=== PATIENT | male | born 1975 | race Two or more races ===

== ENCOUNTER 2024-05-12 05:31 | Inpatient (IN) | payer MEDICAID ==
[~2024-05-12] VITALS: Ht 180.3 cm; Wt 120.4 kg
--- NOTE | 2024-05-12 06:00 | ECG ---
[facility] Test Date: 2024-05-12 Test Time: 05:41:34 Pat Name: MICHAEL FRAGOSO Department: ED Room: 0286 Gender: M Dispatcher [place]: KINDRA : 1975 Requested By: EMERGENCY EMERGENCY Order Number: [id number] Reading MD: David Potter Measurements Intervals [place] Rate: 110 P: 61 [place]: 156 QRS: 228 QRSD: 65 T: 32 QT: 287 QTc: 389 Interpretive Statements Sinus tachycardia Anterior infarct, old Baseline wander in lead(s) V4,V5,V6 Electronically Signed On 05-13-2024 12:50:02 PST by David Potter Please click the below link to view image of tracing.
--- NOTE | 2024-05-12 06:25 | ED.PDOC ---
History of Present Illness HPI Comments 48 y.o male with PMH of DM and hyperlipidemia, presents to the ED for a chief complaint of flu like symptoms. Patient reports for the past 3 days he has been experiencing a productive cough, fever, chills, nausea, vomiting, diarrhea, body aches and chest congestion. Patient mentions close contacts have similar symptoms. Patient is unable to see PCP due to insurance changing and pending at this time. No other symptoms or pain reported. Chief Complaint: Flu like Time Seen by MD: 06:18 Primary Care Provider: ANGÉLICA (OPAL) Reviewed Notes: Nurses Notes, Medications, Allergies Allergies: Coded Allergies: NO KNOWN ALLERGIES (Unverified , 11/05/22) Information Source: Patient Mode of Arrival: Ambulatory Severity: Moderate Timing: Days (3) Duration: Since onset Past Medical History PAST MEDICAL HISTORY: DM, High Lipids Surgical History: Denies all surgeries Family History Family History: Reviewed,noncontributory to illness Social History Smoker: Non-Smoker Alcohol: Denies ETOH Use Drugs: Denies Drug Use Lives In: Home Constitutional: reports: chills, fever; denies: diaphoresis, fatigue, malaise, sweats, weakness, others EENTM: reports: nose congestion; denies: blurred vision, double vision, ear bleeding, ear discharge, ear drainage, ear pain, ear ringing, eye pain, eye redness, hearing loss, mouth pain, mouth swelling, nasal discharge, nose bleeding, nose pain, photophobia, tearing, throat pain, throat swelling, voice changes, others Respiratory: reports: cough; denies: hemoptysis, orthopnea, SOB at rest, shortness of breath, SOB with excertion, stridor, wheezing, others Cardiovascular: denies: chest pain, dizzy spells, diaphoresis, Dyspnea on exertion, edema, irregular heart beat, left arm pain, lightheadedness, palpitations, PND, syncope, others Gastrointestinal: reports: diarrhea, nausea, vomiting; denies: abdomen distended, abdominal pain, blood streaked bowels, constipated, dysphagia, difficulty swallowing, hematemesis, melena, poor appetite, poor fluid intake, rectal bleeding, rectal pain, others Genitourinary: denies: burning, dysuria, flank pain, frequency, hematuria, incontinence, penile discharge, penile sore, pain, testicle pain, testicle swelling, urgency, others Neurological: denies: dizziness, fainting, headache, left sided numbness, left sided weakness, numbness, paresthesia, pre-existing deficit, right sided numbness, right sided weakness, seizure, speech problems, tingling, tremors, weakness, others Musculoskeletal: reports: muscle pain; denies: back pain, gout, joint pain, joint swelling, muscle stiffness, neck pain, others Integumetry: denies: bruises, change in color, change in hair/nails, dryness, laceration, lesions, lumps, rash, wounds, others Allergic/Immunocompromised: denies: Difficulty Healing, Frequent Infections, Hives, Itching, others Hematologic/Lymphatic: denies: anemia, blood clots, easy bleeding, easy bruising, swollen glands, others Endocrine: denies: excessive hunger, excessive sweating, excessive thirst, excessive urination, flushing, intolerance to cold, intolerance to heat, unexplained weight gain, unexplained weight loss, others Psychiatric: denies: anxiety, bipolar disorder, depression, hopeless, panic disorder, schizophrenia, sleepless, suicidal, others All Other Systems: Reviewed and Negative Physical Exam General Appearance: Moderate Distress HEENT: Normal ENT Inspection, Pharynx Normal, TMs Normal Neck: Full Range of Motion, Non-Tender, Normal, Normal Inspection Respiratory: Other (Coarse breath sounds) Cardiovascular: No Edema, No JVD, No Murmur, No Gallop, Normal Peripheral Pulses, Regular Rate/Rhythm Breast Exam: Deferred Gastrointestinal: No Organomegaly, Non Tender, No Pulsatile Mass, Normal Bowel Sounds, Soft Genitalia: Deferred Pelvic: Deferred Rectal: Deferred Extremities: No calf tenderness, Normal capillary refill, Normal inspection, Normal range of motion, Non-tender, No pedal edema Musculoskeletal : Apperance: Normal Neurologic: Alert, senior inspector II-XII nml as Tested, No Motor Deficits, Normal Affect, Normal Mood, No Sensory Deficits Cerebellar Function: Normal Reflexes: Normal Skin: Dry, Normal Color, Warm Peripheral Pulses: 3+ Radial (R), 3+ Radial (L) Lymphatic: No Adenopathy Was a procedure done? Was a procedure done?: No Differential Dx Considerations may include: Influenza, Viral syndrome, URI, Gastrointestinal, dehydration, electrolyte imbalance X-Ray, Labs, Meds, VS Vital Signs Date Time Temp Pulse Resp B/P (MAP) Pulse Ox O2 Delivery O2 Flow Rate FiO2 05/12/24 07:19 106 20 97 Room Air 05/12/24 07:19 99.3 106 20 125/74 (91) 97 99.3 05/12/24 05:44 99.3 113 20 103/45 (64) 98 05/12/24 05:41 110 Lab Test 05/12/24 06:16 05/12/24 05:47 Range/Units White Blood Count 10.3 4.4-10.8 10^3/uL Red Blood Count 5.49 4.5-5.90 10^6/uL Hemoglobin 16.9 13.5-17.5 g/dL Hematocrit 48.2 41.0-53.0 % Mean Corpuscular Volume 87.7 80.0-100.0 fL Mean Corpuscular Hemoglobin 30.7 28.0-32.0 pg Mean Corpuscular Hemoglobin Concent 35.0 32.0-36.0 g/dL Red Cell Distribution Width 13.8 11.8-14.3 % Platelet Count 234 140-450 10^3/uL Mean Platelet Volume 8.8 6.9-10.8 fL Neutrophils (%) (Auto) 74.7 37.0-80.0 % Lymphocytes (%) (Auto) 14.0 10.0-50.0 % Monocytes (%) (Auto) 9.4 0.0-12.0 % Eosinophils (%) (Auto) 1.3 0.0-7.0 % Basophils (%) (Auto) 0.6 0.0-2.0 % Neutrophils # (Auto) 7.7 1.6-8.6 10 ^3/uL Lymphocytes # (Auto) 1.4 0.4-5.4 10 ^3/uL Monocytes # (Auto) 1.0 0-1.3 10 ^3/uL Eosinophils # (Auto) 0.1 0-0.8 10 ^3/uL Basophils # (Auto) 0.1 0-0.2 10 ^3/uL Nucleated Red Blood Cells 0.0 % D-Dimer, Quantitative 0.28 0.0-0.49 mg/L FEU Sodium Level 134 L 136-145 mmol/L Potassium Level 4.2 3.5-5.1 mmol/L Chloride Level 100 98-107 mmol/L Carbon Dioxide Level 25 20-31 mmol/L Anion Gap 9 5-15 Blood Urea Nitrogen 7 L 9-23 mg/dL Creatinine 0.92 0.700-1.30 mg/dL Glomerular Filtration Rate Calc 101 >90 mL/min BUN/Creatinine Ratio 7.6 L 10.0-20.0 Serum Glucose 306 H 74-106 mg/dL Hemoglobin A1c Pending Calcium Level 9.7 8.7-10.4 mg/dL Troponin I High Sensitivity < 3 L </=54 ng/L Influenza Type A Antigen Negative Negative Influenza Type B Antigen Negative Negative SARS-CoV-2 Antigen (Rapid) Negative NEGATIVE Current Medications Medications (Trade) Dose Ordered Sig/[place] Route Start Time Stop Time Status Last Admin Aspirin 325 mg ONCE ONCE PO 05/12/24 06:30 05/12/24 06:31 DC 05/12/24 07:19 Methylprednisolone Sodium Succinate (Solu Medrol) 125 mg ONCE ONCE IV 05/12/24 07:45 05/12/24 07:46 DC 05/12/24 09:18 Piperacillin Sod/ Tazobactam Sod 100 ml @ 100 mls/hr ONCE ONCE IV 05/12/24 09:15 05/12/24 10:14 DC 05/12/24 09:18 Patient alert. Has been having fever cough for few days. Vitals stable. Answering all questions. Unable to take deep breaths. Moving air. Risk factors for coronary artery disease. EKG reviewed does not show any acute changes. Was given aspirin. Reviewed his history. Explained to the patient. Continue cardiac monitoring. X-Ray, Labs, Meds, VS Comment 0 CLINICAL INFORMATION: 48 years old, Male; shortness of breath. TECHNIQUE: Single AP portable chest radiograph was obtained. COMPARISON: None FINDINGS: Lungs: Clear. Cardiac: Heart size is within normal limits. Pulmonary vasculature: Unremarkable. Mediastinum/leida: Unremarkable. Bones: No acute osseous abnormality identified. Other: No other significant findings. IMPRESSION: No evidence of acute disease in the chest. Time of 1ST Reevaluation: 06:25 Reevaluation 1ST: Unchanged Patient Education/Counseling: Diagnosis, Treatment, Prognosis Family Education/Counseling: No Family Present Additional Information The following tests were ordered, and results were reviewed by me: Labs, XY, EKG, PHA I reviewed and agreed with the following test results read by other providers: X-Ray: IMPRESSION: No evidence of acute disease in the chest. I discussed treatment and results with medical personnel and patient Departure 1 Departure Time of Disposition: 06:40 Impression: Primary Impression: Chest pain of unknown etiology Additional Impressions: Uncontrolled diabetes mellitus Qualified Codes: E13.65 - Other specified diabetes mellitus with hyperglyc emia Pneumonitis Disposition: ADMITTED INPATIENT Admit to: Med Surg Condition: Guarded Critical Care Note Critical Care Time?: Yes (45 min-critical care time only) Stability Stability form required: No Heart Score Heart Score: Heart Score Response (Comments) Value History Slightly Suspicious 0 EKG Normal 0 Age 45-64 1 Risk Factors >3 or Hx ASHD 2 Troponin Normal limit 0 Total 3 I personally scribed for DALTON ELLIOTT MD ([email or web address]) on 05/12/24 at 06:25. Electronically submitted by Pham Nicolas ([facility]). I personally scribed for DALTON ELLIOTT MD ([email or web address]) on 05/12/24 at 08:21. Electronically submitted by Pham Nicolas ([facility]). I personally scribed for DALTON ELLIOTT MD ([email or web address]) on 05/12/24 at 10:46. Electronically submitted by Pham Nicolas ([facility]). DALTON ELLIOTT MD May 12, 2024 06:25
[2024-05-12 06:50] LABS: Basophils # (auto) 0.1 10 ^3/uL (0-0.2); Basophils % (auto) 0.6 % (0.0-2.0); Eosinophils # (auto) 0.1 10 ^3/uL (0-0.8); Eosinophils % (auto) 1.3 % (0.0-7.0); Hematocrit 48.2 % (41.0-53.0); Hemoglobin 16.9 g/dL (13.5-17.5); Lymphocytes # (auto) 1.4 10 ^3/uL (0.4-5.4); Mean Corpuscular Hemoglobin 30.7 pg (28.0-32.0); Mean Corpuscular Volume 87.7 fL (80.0-100.0); Monocytes % (auto) 9.4 % (0.0-12.0); Neutrophils # (auto) 7.7 10 ^3/uL (1.6-8.6); Neutrophils % (auto) 74.7 % (37.0-80.0); Platelet Count (auto) 234 10^3/uL (140-450); Red Blood Cells 5.49 10^6/uL (4.5-5.90); Red Cell Distribution Width 13.8 % (11.8-14.3); White Blood Cell 10.3 10^3/uL (4.4-10.8)
[2024-05-12 07:08] LABS: Chloride 100 mmol/L (98-107); Potassium 4.2 mmol/L (3.5-5.1)
[2024-05-12 07:09] LABS: Anion Gap 9 (5-15); Carbon Dioxide 25 mmol/L (20-31)
[2024-05-12 07:10] LABS: Calcium 9.7 mg/dL (8.7-10.4)
[2024-05-12 07:15] LABS: BUN/Creatinine Ratio 7.6 (10.0-20.0)
[2024-05-12] MEDS: ASPirin 325 MG TAB PO ONE (07:19)
[2024-05-12 07:24] LABS: Blood Urea Nitrogen 7 mg/dL (9-23); Glucose 306 mg/dL (74-106); Sodium 134 mmol/L (136-145)
--- NOTE | 2024-05-12 07:27 | DVH ---
CLINICAL INFORMATION: 48 years old, Male; shortness of breath. TECHNIQUE: Single AP portable chest radiograph was obtained. COMPARISON: None FINDINGS: Lungs: Clear. Cardiac: Heart size is within normal limits. Pulmonary vasculature: Unremarkable. Mediastinum/leida: Unremarkable. Bones: No acute osseous abnormality identified. Other: No other significant findings. IMPRESSION: No evidence of acute disease in the chest.
[2024-05-12] MEDS: levoFLOXacin 500MG 100 ML IV ONE (07:45)
[2024-05-12 07:59] LABS: COVID19 ANTIGEN SOFIA FIA NEGATIVE (NEGATIVE); Rapid Influenza A Negative (Negative); Rapid Influenza B Negative (Negative)
[2024-05-12] MEDS: methylPREDNISolone SOD SUCC 125 MG/2 ML VL IV ONE (09:18)
[2024-05-12] MEDS: PIPERACILLIN-TAZOB 3.375GM 100 ML IV ONE (09:18)
--- NOTE | 2024-05-12 09:59 | DVHHP2 ---
History of Present Illness Reason for Visit: Flu like symptoms; body pain, chest congestion, cough, diarrhea, n/v History of Present Illness Tesfaye Crawford is a 48-year-old male with a past medical history of hyperlipidemia and diabetes who presents to the ED with flu-like symptoms of nausea, vomiting, diarrhea, body pain, chest congestion, nonproductive cough, and shortness of breath. Patient reports that recent sick contacts are his daughter and grandson whom tested positive for influenza recently. Patient states that he is from [place] had a PCP there but does not have a PCP here currently, issue with insurance. Patient reports not taking his medications for greater than 1 year due to insurance issues. Patient denies fever, chills, abdominal pain, chest pain, headache, lightheadedness, and dizziness. Cardiovascular: hyperipidemia Endocrine: Diabetes Past Surgical History: None Family History: None Smoke: No ALCOHOL: none Drugs: Marijuana Lives: with Family Domestic Violence: Neg Review of Systems Constitutional: Yes: Other (myalgia); No: Fever, Chills, Sweats, Weakness, Malaise Eyes: No: Pain, Vision change, Conjunctivae inflammation, Eyelid inflammation, Other, Redness ENT: No: Ear pain, Ear discharge, Nose pain, Nose discharge, Nose congestion, Mouth pain, Mouth swelling, Throat pain, Throat swelling, Other Respiratory: Cough, Shortness of breath; No: Dry, SOB with excertion, Wheezing, Hemoptysis, Pleuritic Pain, Sputum, Wheezing, Other Cardiovascular: No: Chest Pain, Palpitations, Orthopnea, Paroxysmal Noc. Dyspnea, Edema, Lt Headedness, Other Gastrointestinal: Nausea, Vomiting, Diarrhea; No: Abdominal Pain, Constipation, Melena, Hematochezia, Other Genitourinary: No Dysuria, No Frequency, No Incontinence, No Hematuria, No Retention, No Other Musculoskeletal: No: other, neck pain, shoulder pain, arm pain, back pain, hand pain, leg pain, foot pain Skin: No: Rash, Lesions, Jaundice, Bruising, Other Neurological: No: Weakness, Numbness, Incoordination, Change in speech, Confusion, Seizures, Other Allergies: Coded Allergies: NO KNOWN ALLERGIES (Unverified , 11/05/22) Exam Vital Signs Vital Signs Date Time Temp Pulse Resp B/P (MAP) Pulse Ox O2 Delivery O2 Flow Rate FiO2 05/12/24 07:19 106 20 97 Room Air 05/12/24 07:19 99.3 125/74 (91) 99.3 General Appearance: Alert, Oriented X3, Cooperative, mild distress HEENT: Atraumatic, PERRLA, EOMI, Mucous membr. moist/pink Respiratory: Clear to auscultation, Normal air movement Cardiovascular: Normal S1, Normal S2, No murmurs Abdominal: Normal bowel sounds, Soft, No tenderness, No hepatospenomegaly, No masses Extremities: No clubbing, No cyanosis, No edema, Normal pulses, No tenderness/swelling Skin: No rashes, No breakdown, No significant lesion Neuro: Normal gait, Normal speech, Strength at 5/5 X4 ext, Normal tone, Sensation intact, Cranial nerves 3-12 NL, Reflexes 2+ Psych/Mental Status: Mental status NL, Mood NL Labs/Xrays Labs Test 05/12/24 06:16 05/12/24 05:47 Range/Units White Blood Count 10.3 4.4-10.8 10^3/uL Red Blood Count 5.49 4.5-5.90 10^6/uL Hemoglobin 16.9 13.5-17.5 g/dL Hematocrit 48.2 41.0-53.0 % Mean Corpuscular Volume 87.7 80.0-100.0 fL Mean Corpuscular Hemoglobin 30.7 28.0-32.0 pg Mean Corpuscular Hemoglobin Concent 35.0 32.0-36.0 g/dL Red Cell Distribution Width 13.8 11.8-14.3 % Platelet Count 234 140-450 10^3/uL Mean Platelet Volume 8.8 6.9-10.8 fL Neutrophils (%) (Auto) 74.7 37.0-80.0 % Lymphocytes (%) (Auto) 14.0 10.0-50.0 % Monocytes (%) (Auto) 9.4 0.0-12.0 % Eosinophils (%) (Auto) 1.3 0.0-7.0 % Basophils (%) (Auto) 0.6 0.0-2.0 % Neutrophils # (Auto) 7.7 1.6-8.6 10 ^3/uL Lymphocytes # (Auto) 1.4 0.4-5.4 10 ^3/uL Monocytes # (Auto) 1.0 0-1.3 10 ^3/uL Eosinophils # (Auto) 0.1 0-0.8 10 ^3/uL Basophils # (Auto) 0.1 0-0.2 10 ^3/uL Nucleated Red Blood Cells 0.0 % D-Dimer, Quantitative 0.28 0.0-0.49 mg/L FEU Sodium Level 134 L 136-145 mmol/L Potassium Level 4.2 3.5-5.1 mmol/L Chloride Level 100 98-107 mmol/L Carbon Dioxide Level 25 20-31 mmol/L Anion Gap 9 5-15 Blood Urea Nitrogen 7 L 9-23 mg/dL Creatinine 0.92 0.700-1.30 mg/dL Glomerular Filtration Rate Calc 101 >90 mL/min BUN/Creatinine Ratio 7.6 L 10.0-20.0 Serum Glucose 306 H 74-106 mg/dL Calcium Level 9.7 8.7-10.4 mg/dL Troponin I High Sensitivity < 3 L </=54 ng/L Influenza Type A Antigen Negative Negative Influenza Type B Antigen Negative Negative SARS-CoV-2 Antigen (Rapid) Negative NEGATIVE CLINICAL INFORMATION: 48 years old, Male; shortness of breath. TECHNIQUE: Single AP portable chest radiograph was obtained. COMPARISON: None FINDINGS: Lungs: Clear. Cardiac: Heart size is within normal limits. Pulmonary vasculature: Unremarkable. Mediastinum/leida: Unremarkable. Bones: No acute osseous abnormality identified. Other: No other significant findings. IMPRESSION: No evidence of acute disease in the chest. Assessment/Plan Assessment/Plan Assessment/Plan: R/O PNA 2nd to suspected Influenza labs cxr ekg trop negative IV Abx ua uds tamiflu DM uncontrolled HgbA1c 12.1% ISS and accuchecks HLD statins FEN/PPX diet ivf patient ambulating no concerns for dvt ppx Discussed plan of care with patient and nurse Admit to med surg Plan discussed with: Patient My Orders Orders - MATA RAWLS Procedure Category Date Status Time Hemoglobin A1c LAB 05/12/24 In Process 09:43 Date of Service: May 12, 2024 Billing Provider: MATA RAWLS Common Visit Codes: [id number] INP/OBS CARE (MOD) MATA RAWLS May 12, 2024 09:59
[2024-05-12] MEDS ORDERED: MORPHINE SULFATE INJ 2 MG/ml SYRG IV PRN (10:00)
[2024-05-12] MEDS ORDERED: DEXTROSE (50%) 50ML SYRG IV PRN (10:00)
[2024-05-12] MEDS ORDERED: ONDANSETRON HCL 4 MG/2 ML VIAL IV PRN (10:00)
[2024-05-12] MEDS ORDERED: ACETAMINOPHEN 325 MG TAB PO PRN (10:00)
[2024-05-12] MEDS: SODIUM CHLORIDE 0.9% 1,000 ML IV SCH ×2 (10:00→15:19)
[2024-05-12] MEDS: OSELTAMIVIR 75 MG CAP PO ONE (10:54)
[2024-05-12] MEDS: HYDROcodone-ACET 5/325MG TAB PO PRN (10:55)
[2024-05-12 11:06] VITALS: O2SAT 98
[2024-05-12 11:07] VITALS: BP 104/62; PULSE 94; RESP 18; TEMP 98; O2SAT 94
[2024-05-12] MEDS: ACCU-CHEK COMFORT CURVE STRIP VI SCH ×2 (11:30→22:00)
[2024-05-12] MEDS: InsuLIN REG 1unit/0.01ml Soln (100units/ml) SC SCH ×2 (11:30→22:02)
[2024-05-12 12:00] VITALS: BP 109/62; PULSE 90; RESP 18; TEMP 98.2; O2SAT 94
[2024-05-12 17:32] VITALS: BP 128/76; PULSE 89; RESP 17; TEMP 97.7; O2SAT 93
[2024-05-12 21:00] VITALS: BP 139/80; PULSE 90; RESP 14; TEMP 97.9; O2SAT 95
[2024-05-12] MEDS: ATORVASTATIN 20 MG TAB PO SCH (21:58)
[2024-05-12] MEDS: OSELTAMIVIR 75 MG CAP PO SCH (21:58)
[2024-05-12] MEDS ORDERED: InsuLIN REG 1unit/0.01ml Soln (100units/ml) SC SCH (22:00)
[2024-05-13 01:00] VITALS: BP 131/76; PULSE 86; RESP 15; TEMP 98; O2SAT 94
[2024-05-13 04:58] VITALS: BP 100/57; PULSE 72; RESP 15; TEMP 97.8; O2SAT 96
[2024-05-13 06:16] LABS: Basophils # (auto) 0 10 ^3/uL (0-0.2); Basophils % (auto) 0.1 % (0.0-2.0); Eosinophils # (auto) 0 10 ^3/uL (0-0.8); Eosinophils % (auto) 0.1 % (0.0-7.0); Hematocrit 48.4 % (41.0-53.0); Hemoglobin 16.5 g/dL (13.5-17.5); Lymphocytes # (auto) 1.5 10 ^3/uL (0.4-5.4); Lymphocytes % (auto) 20.1 % (10.0-50.0); Mean Corpuscular Hemoglobin 30.7 pg (28.0-32.0); Mean Corpuscular Hgb Conc. 34.1 g/dL (32.0-36.0); Mean Corpuscular Volume 89.9 fL (80.0-100.0); Monocytes # (auto) 0.7 10 ^3/uL (0-1.3); Monocytes % (auto) 9.4 % (0.0-12.0); Neutrophils # (auto) 5.3 10 ^3/uL (1.6-8.6); Neutrophils % (auto) 70.3 % (37.0-80.0); Nucleated Red Blood Cells % 0.2 %; Platelet Count (auto) 200 10^3/uL (140-450); Red Blood Cells 5.38 10^6/uL (4.5-5.90); Red Cell Distribution Width 13.9 % (11.8-14.3); White Blood Cell 7.5 10^3/uL (4.4-10.8)
[2024-05-13 06:29] LABS: Alanine Aminotransferase 15 U/L (7-40); Alkaline Phosphatase 93 U/L (46-116); Anion Gap 10 (5-15); BUN/Creatinine Ratio 16.4 (10.0-20.0); Blood Urea Nitrogen 9 mg/dL (9-23); Calcium 9.2 mg/dL (8.7-10.4); Carbon Dioxide 23 mmol/L (20-31); Chloride 104 mmol/L (98-107); Potassium 4.1 mmol/L (3.5-5.1); Sodium 137 mmol/L (136-145)
[2024-05-13 06:30] LABS: Bilirubin, Total 0.9 mg/dL (0.2-1.0); Total Protein 6.6 g/dL (5.7-8.2)
[2024-05-13 06:36] LABS: Aspartate Aminotransferase 11 U/L (13-40); Glucose 231 mg/dL (74-106)
[2024-05-13 08:49] LABS: Magnesium 2.1 mg/dL (1.6-2.6)
[2024-05-13 09:00] VITALS: BP 142/98; PULSE 83; RESP 18; TEMP 97.9; O2SAT 95
[2024-05-13] MEDS ORDERED: METF-370 PO (12:17)
[2024-05-13] MEDS ORDERED: INSLANTI SC (12:17)
[2024-05-13 12:35] VITALS: TEMP 36.6
[2024-05-13 13:00] VITALS: BP 137/85; PULSE 84; RESP 18; TEMP 97.6; O2SAT 98
--- NOTE | 2024-05-13 16:55 | DVHDSRES ---
Discharge Summary Date of Admission Resident Creating Document: ALESSANDRO KOEHLER RESIDENT May 12, 2024 at 09:52 Date of Discharge: May 13, 2024 Admitting Diagnosis [facility]HS Labs/Diagnostic Data: Laboratory Results Test 05/13/24 11:20 05/13/24 05:00 05/12/24 06:16 05/12/24 05:47 POC Glucose 190 mg/dl (70-106) White Blood Count 7.5 10^3/uL (4.4-10.8) Red Blood Count 5.38 10^6/uL (4.5-5.90) Hemoglobin 16.5 g/dL (13.5-17.5) Hematocrit 48.4 % (41.0-53.0) Mean Corpuscular Volume 89.9 fL (80.0-100.0) Mean Corpuscular Hemoglobin 30.7 pg (28.0-32.0) Mean Corpuscular Hemoglobin Concent 34.1 g/dL (32.0-36.0) Red Cell Distribution Width 13.9 % (11.8-14.3) Platelet Count 200 10^3/uL (140-450) Mean Platelet Volume 8.4 fL (6.9-10.8) Neutrophils (%) (Auto) 70.3 % (37.0-80.0) Lymphocytes (%) (Auto) 20.1 % (10.0-50.0) Monocytes (%) (Auto) 9.4 % (0.0-12.0) Eosinophils (%) (Auto) 0.1 % (0.0-7.0) Basophils (%) (Auto) 0.1 % (0.0-2.0) Neutrophils # (Auto) 5.3 10 ^3/uL (1.6-8.6) Lymphocytes # (Auto) 1.5 10 ^3/uL (0.4-5.4) Monocytes # (Auto) 0.7 10 ^3/uL (0-1.3) Eosinophils # (Auto) 0 10 ^3/uL (0-0.8) Basophils # (Auto) 0 10 ^3/uL (0-0.2) Nucleated Red Blood Cells 0.2 % Sodium Level 137 mmol/L (136-145) Potassium Level 4.1 mmol/L (3.5-5.1) Chloride Level 104 mmol/L (98-107) Carbon Dioxide Level 23 mmol/L (20-31) Anion Gap 10 (5-15) Blood Urea Nitrogen 9 mg/dL (9-23) Creatinine 0.55 mg/dL (0.700-1.30) Glomerular Filtration Rate Calc 121 mL/min (>90) BUN/Creatinine Ratio 16.4 (10.0-20.0) Serum Glucose 231 mg/dL (74-106) Calcium Level 9.2 mg/dL (8.7-10.4) Phosphorus Level 3.0 mg/dL (2.4-5.1) Magnesium Level 2.1 mg/dL (1.6-2.6) Total Bilirubin 0.9 mg/dL (0.2-1.0) Aspartate Amino Transferase (AST) 11 U/L (13-40) Alanine Aminotransferase (ALT) 15 U/L (7-40) Alkaline Phosphatase 93 U/L (46-116) Total Protein 6.6 g/dL (5.7-8.2) Albumin 4.0 g/dL (3.2-4.8) Vitamin B12 Level 480 pg/mL (211-911) Vitamin D 25-Hydroxy 5.7 ng/mL (30.0-100) Thyroid Stimulating Hormone (TSH) 0.37 uIU/mL (0.55-4.78) D-Dimer, Quantitative 0.28 mg/L FEU (0.0-0.49) Hemoglobin A1c 12.1 % A1C (<5.7) Troponin I High Sensitivity < 3 ng/L (</=54) Influenza Type A Antigen Negative (Negative) Influenza Type B Antigen Negative (Negative) SARS-CoV-2 Antigen (Rapid) Negative (NEGATIVE) Other Laboratory Tests 05/13/24 05:00 Brief Hx & Hospital Course: The patient is a 48-year-old male with a history of diabetes and hyperlipidemia who presented with flu-like symptoms, including nausea, vomiting, nonproductive cough, chest congestion, and shortness of breath, following recent exposure to sick contacts who tested positive for influenza. Initial workup, including labs, chest X-ray, and influenza testing, ruled out influenza . The patient was found to have uncontrolled diabetes with an HbA1c of 12.1% and a history of medication noncompliance due to insurance issues. No acute infection was identified, and the patient showed no evidence of serious complications. The patients condition was stabilized during admission with IV fluids, symptomatic management, and education on diabetes control. He was discharged on insulin and metformin, with recommendations for blood glucose monitoring and follow-up care to address uncontrolled diabetes and hyperlipidemia. The patient was counseled on the importance of medication adherence and lifestyle modifications to improve glycemic control and overall health. Follow-up appointments with primary care were advised for ongoing management. General Appearance: Alert, Oriented X3, Cooperative, mild distress HEENT: Atraumatic, PERRLA, EOMI, Mucous membr. moist/pink Respiratory: Clear to auscultation, Normal air movement Cardiovascular: Normal S1, Normal S2, No murmurs Abdominal: Normal bowel sounds, Soft, No tenderness, No hepatospenomegaly, No masses Extremities: No clubbing, No cyanosis, No edema, Normal pulses, No tenderness/swelling Skin: No rashes, No breakdown, No significant lesion Neuro: Normal gait, Normal speech, Strength at 5/5 X4 ext, Normal tone, Sensation intact, Cranial nerves 3-12 NL, Reflexes 2+ Psych/Mental Status: Mental status NL, Mood NL Case discussed with Dr Rodriguez Operations or Procedures CLINICAL INFORMATION: 48 years old, Male; shortness of breath. TECHNIQUE: Single AP portable chest radiograph was obtained. COMPARISON: None FINDINGS: Lungs: Clear. Cardiac: Heart size is within normal limits. Pulmonary vasculature: Unremarkable. Mediastinum/leida: Unremarkable. Bones: No acute osseous abnormality identified. Other: No other significant findings. IMPRESSION: No evidence of acute disease in the chest. Condition at Discharge: Stable Final Diagnosis/Problems List hyperglycemic hyperosmolar syndrome uncontrolled diabetes viral pneumonitis hyperlipidiemia dehydration Discharge Disposition: Home Discharge Instruct/Medications Diet: Consistent carbohydrate Activity: Light activity Follow Up/Referral: pcp in 7 days with fasting sugars readings Medications: see prescription Discharge Statement: "Patient was advised to return to the ER or call 911 if any headaches, dizziness, shortness of breath, chest pain, abdominal pain, bleeding, fevers, or worsening of medical condition. Patient was counseled about treatment plan, medications, possible side effects, patientverbalized understanding. All questions were answered to the best of my ability. This discharge took greater then 30 minutes in planning, reviewing documentation, counseling the patient, and discussing with other team members." ASSESSMENT ASSESSMENT Assessment hyperglycemia viral pneumonitis Date of Service: May 13, 2024 Billing Provider: LEONARD RODRIGUEZ MD Common Visit Codes: 25160-JNO/OBS DISCH DAY >30min ALESSANDRO KOEHLER RESIDENT May 13, 2024 16:55 LEONARD RODRIGUEZ MD May 16, 2024 19:53
[2024-05-13] MEDS ORDERED: INSULIN LANTUS (GLARGINE) 1 /0.01ml (100units/ml) SC SCH (22:00)
== END 2024-05-13 14:58 | disposition home or self-care (01) | DRG 144 ==
LOC: ER 05:31 → OVERFLOW 09:52 → WEST WING 15:10
PROVIDERS: ADMIT Internal Medicine Geriatric Medicine; ATTEND Internal Medicine Geriatric Medicine
DX: J98.4 Other disorders of lung (principal); E11.00 Type 2 diabetes mellitus with hyperosmolarity without nonketotic hyperglycemic-hyperosmolar coma (NKHHC); E78.5 Hyperlipidemia, unspecified; E86.0 Dehydration; Z20.822 Contact with and (suspected) exposure to COVID-19
CPT/HCPCS: 36415; 71045; 80048; 80053; 82306; 82607; 82962; 83036; 83735; 84100; 84443; 84484; 85025; 85379; 87426; 87804; 93005; 96361; 96365; 96375; 99291; G0378; J1815; J2543